=== PATIENT | male | born 1975 | race Caucasian/White ===

== ENCOUNTER 2020-10-01 22:07 | Emergency (ER) | payer BC, OTHER ==
[~2020-10-01] VITALS: Ht 182.9 cm; Wt 86.2 kg
[2020-10-02 01:08] VITALS: BP 131/83
== END 2020-10-02 02:20 ==
LOC: EDBD 22:07 → ER 22:08
DX: S70.11XA Contusion of right thigh, initial encounter (principal); S80.01XA Contusion of right knee, initial encounter; Z85.830 Personal history of malignant neoplasm of bone; Y04.8XXA Assault by other bodily force, initial encounter; Y93.89 Activity, other specified; Y92.89 Other specified places as the place of occurrence of the external cause; Y99.8 Other external cause status
CPT/HCPCS: 72170; 73590